=== PATIENT | male | born 1995 | race Caucasian/White ===

== ENCOUNTER 2018-07-28 09:16 | Emergency (ER) | payer OTHER ==
[~2018-07-28] VITALS: Ht 177.8 cm; Wt 94.3 kg
[2018-07-28 09:16] VITALS: Ht 177.8 cm; Wt 94.3 kg
[2018-07-28 10:38] VITALS: BP 142/87
== END 2018-07-28 10:38 | disposition home or self-care (01) ==
LOC: ED 09:16
DX: S29.012A Strain of muscle and tendon of back wall of thorax, initial encounter (principal); X50.9XXA Other and unspecified overexertion or strenuous movements or postures, initial encounter; Y93.89 Activity, other specified; Y92.89 Other specified places as the place of occurrence of the external cause; Y99.8 Other external cause status
CPT/HCPCS: 72072; J1885